=== PATIENT | female | born 2005 | race African-American/Black ===

== ENCOUNTER 2024-04-10 13:23 | Emergency (ER) | payer SELFPAY ==
--- NOTE | ~2024-04-10 | CT_ITS ---
EXAMINATION: CT facial bones w con DATE: 04/10/2024 14:51 INDICATION: right sided facial swelling . TECHNIQUE: Computed tomography (CT) of the facial bones and maxillofacial region was performed intrav enous contrast. Automated exposure control and iterative reconstruction technique were employed. The dose-length product was 552.71 mGy-cm. COMPARISON: None. FINDINGS: Soft Tissues: Mild subcutaneous stranding in the right cheek and lateral/. Facial bones: No acute fracture. No lytic or blastic process. Eyes: The globes are intact. The soft tissue planes of the orbits are maintained. Paranasal Sinuses: Left maxillary retention cyst/polyp, the remaining aerated spaces are clear. Foreign Bodies: No radiopaque foreign bodies. Other Findings: Mild enlargement and inflammatory change in the right parotid gland. Dental caries in volving the posterior right maxillary molar. IMPRESSION: Right parotiditis. Dental caries. Reviewed, dictated and finalized at location [facility]. [facility]
[2024-04-10 13:25] VITALS: BP 114/64; PULSE 94; RESP 17; TEMP 37.2; O2SAT 100
[2024-04-10 13:48] VITALS: RESP 18
--- NOTE | 2024-04-10 13:58 | PC.NURSE ---
Patient has facial swelling on bilateral cheeks. patient denies tongue or throat swelling. patient having no difficulty swallowing.
--- NOTE | 2024-04-10 14:03 | ED_ITS ---
HPI - General Adult General Chief complaint: Unspecified Stated complaint: facial swelling Time Seen by Provider: 04/10/24 13:50 History of Present Illness HPI narrative: 18-year-old female present to the emergency department for evaluation for right- sided facial swelling. Patient states that she woke up 2 mornings ago. Patient denies any swelling of her tongue, swelling of her lips, difficulty breathing difficulty swallowing. Patient states that she initially had swelling on both sides but only has swelling on the right patient Related Data Allergies Allergy/AdvReac Type Severity Reaction Status Date / Time No Known Allergies Allergy Verified 04/10/24 13:48 Review of Systems 2 Review of Systems: All systems reviewed & are unremarkable except as noted in HPI and below [facility] Family History Family History (Updated 08/15/22 @ 09:35 by Earlene Uriostegui [facility]) Grandparent Diabetes mellitus Social History Social History Smoking status: Never smoker Exam 2 Narrative: APPEARANCE: Well appearing, no pain, no distress, well-nourished. HEAD: Right-sided facial swelling EYES: PERRLA/EOMI, conjunctivae clear. NOSE: Normal no drainage EARS:TMS clear with good light reflex. THROAT: Pharynx clear, no exudate. NECK: Supple. No adenopathy, no masses. RESPIRATORY: Airway patent, respirations nonlabored. Clear to auscultation bilaterally, no rales, rhonchi, wheezing. CARDIOVASCULAR: Regular rate and rhythm without murmurs rubs or gallops. ABDOMINAL: Soft, nontender, nondistended, normal bowel sounds MUSCULOSKELETAL: Moves all extremities. Strength/ROM intact, No edema, No calf tenderness. NEURO: Alert. Cranial nerves II through XII intact. Good gait. Good coordination SKIN: mild right-sided facial swelling with some tenderness over the parotid gland Course Vital Signs Vital signs: Vital Signs Temperature 98.9 F 04/10/24 13:25 Pulse Rate 94 04/10/24 13:25 Respiratory Rate 17 04/10/24 13:25 Blood Pressure 114/64 04/10/24 13:25 Pulse Oximetry 100 04/10/24 13:25 Oxygen Delivery Room Air 04/10/24 13:25 Temperature 98.9 F 04/10/24 13:25 Pulse Rate 99 04/10/24 15:37 Respiratory Rate 16 04/10/24 15:37 Blood Pressure 106/72 04/10/24 15:37 Pulse Oximetry 99 04/10/24 15:37 Oxygen Delivery Room Air 04/10/24 13:25 Medical Decision Making MDM Narrative Medical decision making narrative: 18-year-old female present to the emergency department for evaluation for right facial swelling. Patient denies any difficulty breathing swallowing. Patient denies any swelling of lips tongue. Patient does have some mild swelling on the right side of her face. Tenderness over the parotid gland. CT scan was ordered to evaluate and did show evidence peritonitis. Patient was also found to have some dental caries. Patient was started on Augmentin. Patient was updated on the results. All questions concerns were addressed. Patient was discharged home with instructions for close follow-up. Differential Diagnosis Differential Diagnosis: Dental abscess, dental infection, dental radha, peritonitis, angioedema Vital Signs Vital Signs: Vital Signs Temperature 98.9 F 04/10/24 13:25 Pulse Rate 94 04/10/24 13:25 Respiratory Rate 17 04/10/24 13:25 Blood Pressure 114/64 04/10/24 13:25 Pulse Oximetry 100 04/10/24 13:25 Oxygen Delivery Room Air 04/10/24 13:25 Temperature 98.9 F 04/10/24 13:25 Pulse Rate 99 04/10/24 15:37 Respiratory Rate 16 04/10/24 15:37 Blood Pressure 106/72 04/10/24 15:37 Pulse Oximetry 99 04/10/24 15:37 Oxygen Delivery Room Air 04/10/24 13:25 Lab Data Lab results reviewed: Yes I reviewed the patient's lab results. 04/10/24 14:10 04/10/24 14:10 Labs: Lab Results 04/10/24 04/10/24 Range/Units 14:10 14:30 WBC 8.0 (4.5-10.0) K/mm3 RBC 5.21 (4.2-5.4) M/mm3 Hgb 11.9 L (12.0-15.0) g/dL Hct 37.4 (37.0-47.0) % MCV 71.8 L (80-100) fl MCH 22.8 L (26-34) pg MCHC 31.8 L (32-36) g/dl RDW 13.8 (11.5-14.5) % Plt Count 321 (150-375) k/mm3 MPV 9.0 (7.4-10.4) fl Immature Gran % (Auto) 0.3 (0-0.5) % Neut % (Auto) 59.5 (45.5-73.1) % Lymph % (Auto) 28.9 (18.3-44.2) % [place] % (Auto) 7.0 (2.6-8.5) % Eos % (Auto) 4.0 (0-4.4) % Baso % (Auto) 0.3 (0.2-1.2) % Lymph # (Auto) 2.31 (0.9-3.2) K/mm3 [place] # (Auto) 0.6 (0.1-0.6) K/mm3 Eos # (Auto) 0.3 (0-0.3) K/mm3 Baso # (Auto) 0.0 (0.0-0.1) K/mm3 Abs Immat Gran (auto) 0.02 (0.00-0.031) K/mm3 Absolute Neuts (auto) 4.8 (1.3-6.7) K/mm3 Absolute Nucleated RBC 0.000 (0.0-0.012) K/mm3 Nucleated RBC % 0.0 (0.0-0.2) % Platelet Estimate Adequate (Adequate) Microcytosis 1+ (NORMAL) Schistocytes None seen Sodium 137 (137-145) mmol/L Potassium 4.4 (3.4-5.0) mmol/L Chloride 101 (98-107) mmol/L Carbon Dioxide 25 (22-30) mmol/L Anion Gap 11 (4-12) mmol/L BUN 7 (7-17) mg/dL Creatinine 0.59 L (0.7-1.0) mg/dL Estim Creat Clear Calc 127 ml/min Estimated GFR > 60 (59 - ) Glucose 85 (65-110) mg/dL Calcium 9.7 (8.4-10.2) mg/dL Total Bilirubin 0.6 (0.2-1.3) mg/dL AST 24 (14-36) U/L ALT 20 (6-35) U/L Alkaline Phosphatase 95 (38-126) U/L Total Protein 8.0 (6.3-8.2) g/dL Albumin 4.5 (3.5-5.1) g/dL POC Urine HCG, Qual Negative (Negative) Imaging Data Radiologist's impression: Impressions Face CT 04/10/24 14:53 IMPRESSION: Right parotiditis. Dental caries. Discharge Plan Discharge Clinical Impression: Parotiditis, Dental caries Patient Disposition: Home, Self-Care Condition: Stable Instructions: Antibiotic Form, Parotid Duct Obstruction (ED) Additional Instructions: Antibiotic as directed. Tylenol and ibuprofen for pain control. Have close follow-up with ENT. Patient Language: Azeri Prescriptions: New amoxicillin-pot clavulanate 875-125 mg tablet 1 tablet PO Q12H Qty: 14 0RF No Action metronidazole 500 mg tablet 500 mg PO Q12H Qty: 14 0RF Follow-up/Referrals: Terell Contreras MD [Physician] - PHYSICIAN,[employer] [Primary Care Provider] -
[2024-04-10 14:14] LABS: Basophils Percent Auto 0.3 % (0.2-1.2); Eosinophils Absolute Auto 0.3 K/mm3 (0-0.3); Hematocrit 37.4 % (37.0-47.0); Hemoglobin 11.9 g/dL (12.0-15.0); Immature Granulocyte Absolute 0.02 K/mm3 (0.00-0.031); Immature Granulocyte Percent A 0.3 % (0-0.5); Lymphocytes Absolute Auto 2.31 K/mm3 (0.9-3.2); Lymphocytes Percent Auto 28.9 % (18.3-44.2); Mean Corpuscular HGB Conc 31.8 g/dl (32-36); Mean Corpuscular Hemoglobin 22.8 pg (26-34); Mean Corpuscular Volume 71.8 fl (80-100); Monocytes Absolute Auto 0.6 K/mm3 (0.1-0.6); Neutrophils Absolute Auto 4.8 K/mm3 (1.3-6.7); Neutrophils Percent Auto 59.5 % (45.5-73.1); Platelet Count Result 321 k/mm3 (150-375); Red Blood Count 5.21 M/mm3 (4.2-5.4); Red Cell Distribution Width 13.8 % (11.5-14.5)
[2024-04-10 14:29] LABS: Alanine Aminotransferase 20 U/L (6-35); Albumin Level 4.5 g/dL (3.5-5.1); Alkaline Phosphatase 95 U/L (38-126); Anion Gap 11 mmol/L (4-12); Aspartate Amino Transferase 24 U/L (14-36); Bilirubin,Total 0.6 mg/dL (0.2-1.3); Blood Urea Nitrogen 7 mg/dL (7-17); Calcium 9.7 mg/dL (8.4-10.2); Carbon Dioxide 25 mmol/L (22-30); Chloride 101 mmol/L (98-107); Estimated CRCL calculation 127 ml/min; Estimated Glomerular Filt Rate > 60; Glucose 85 mg/dL (65-110); Platelet Estimate Adequate (Adequate); Potassium 4.4 mmol/L (3.4-5.0); Sodium 137 mmol/L (137-145)
[2024-04-10 14:30] LABS: Microcytosis 1+ (NORMAL); Schistocytes None Seen
[2024-04-10 14:32] LABS: BEDSIDEPREGUCG Negative (Negative)
[2024-04-10 15:37] VITALS: BP 106/72; PULSE 99; RESP 16; O2SAT 99
== END 2024-04-10 15:38 | disposition home or self-care (01) ==
PROVIDERS: Emergency Provider Emergency Medicine
DX: K11.20 Sialoadenitis, unspecified (principal); K02.9 Dental caries, unspecified
CPT/HCPCS: 36415; 70487; 80053; 81025; 85025; 99284; Q9967